=== PATIENT | female | born 1960 | race Caucasian/White ===

== ENCOUNTER 2019-12-21 12:54 | Outpatient (CLI) | payer SELFPAY ==
--- NOTE | 2019-12-21 13:07 | XR_ITS ---
WS: [id number] HIPS BILATERAL TECHNIQUE: 5 views bilateral hips Including pelvis CLINICAL INFORMATION: PAIN IN LEFT HIP COMPARISON: None. FINDINGS: Mild degenerative arthritis both hips with joint space narrowing. Left hip is otherwise normal in thomas earance. No acute fractures. Normal pubic rami. Proximal femurs appear normal. XR/XR hip BI m 5V wo/w pel* [id number] IMPRESSION: No acute left hip fractures.
== END 2019-12-21 12:55 | disposition home or self-care (01) ==
PROVIDERS: Family Provider Family Medicine; PCP Family Medicine; Visit Provider Family Medicine
DX: M25.552 Pain in left hip (principal)
CPT/HCPCS: 73523

== ENCOUNTER 2022-03-19 12:50 | Outpatient (CLI) | payer OTHER, SELFPAY ==
--- NOTE | 2022-03-19 13:18 | MM_ITS ---
WS: [id number] BILATERAL 3D TOMOSYNTHESIS DIGITAL SCREENING MAMMOGRAPHY WITH CAD CLINICAL INFORMATION: SCREENING HISTORY: Screening mammogram. No current complaints. COMPARISON: August 08, 2013 TECHNIQUE: Bilateral CC and MLO views. FINDINGS: Scattered fibroglandular densities bilaterally. A few incidental punctate calcifications. No suspicio us focal mass, asymmetry, calcifications, or architectural distortion. No evidence of malignancy. MM/[place] [id number] IMPRESSION: BI-RADS: 2-Benign FOLLOW UP: 1 Year Follow-up Recommend return to annual screening mammography.
== END 2022-03-19 12:51 | disposition home or self-care (01) ==
LOC: RAD 12:52
PROVIDERS: PCP Family Medicine; Visit Provider Family Medicine
DX: Z12.31 Encounter for screening mammogram for malignant neoplasm of breast (principal)
CPT/HCPCS: 77063; 77067

== ENCOUNTER 2022-11-30 13:20 | Outpatient (CLI) | payer OTHER, SELFPAY ==
--- NOTE | 2022-11-30 13:59 | XR_ITS ---
WS: [id number] Exam: XR lumbar spine min 4V [id number] Date/Time of Exam: 11/30/2022 2:08 PM Reason For Exam: DORSALGIA There is grade 1 degenerative spondylolisthesis of L4 on L5 with about 1.3 cm forward movement of L4. This likely causes some neural impingement. No other spondylolisthesis is noted. Marked degeneration of the L5-S1 disc. Facet arthropathy at all levels. Minimal spondylosis. Mild dextroscoliosis. Bilat eral SI joint DJD. XR/XR lumbar spine min 4V [id number] IMPRESSION: 1. Significant degenerative anterolisthesis of L4 on L5 with about 1.[address] movement of L4. This almost surely causes some degree of neural impingement. 2. Moderately advanced facet arthropathy at all levels. Degeneration of the L5- S1 disc. 3. Mild dextroscoliosis.
== END 2022-11-30 13:21 | disposition home or self-care (01) ==
LOC: RAD 13:41
PROVIDERS: PCP Family Medicine; Visit Provider Family Medicine
DX: M54.9 Dorsalgia, unspecified (principal)
CPT/HCPCS: 72110

== ENCOUNTER 2023-04-01 15:28 | Outpatient (CLI) | payer MEDICARE, SELFPAY ==
--- NOTE | 2023-04-01 | XR_ITS ---
WS: [id number] DEXA (DUAL ENERGY X-RAY ABSORPTIOMETRY) Bone mineral density was performed using a [employer] machine. HISTORY: MENOPAUSAL COMPARISON: None available. Lumbar spine BMD (L1-L4): 1.468 g/cm2 T score: 2.4 Z score: 3.8 Total hip BMD: Left: 0.896 g/cm2. T score: -0.9 Z score: 0.2 Right: 0.831 g/cm2. T score: -1.4 Z score: -0.3 10 year probability of a major osteoporotic fracture is 16.2%. XR/XR DEXA axial skeleton* [id number] IMPRESSION: OSTEOPENIA based upon the WHO classification for females.
== END 2023-04-01 15:29 | disposition home or self-care (01) ==
LOC: RAD 15:36
PROVIDERS: PCP Family Medicine; Visit Provider Neurological Surgery
DX: N95.1 Menopausal and female climacteric states (principal); M85.80 Other specified disorders of bone density and structure, unspecified site; Z79.83 Long term (current) use of bisphosphonates
CPT/HCPCS: 77080

== ENCOUNTER 2023-05-04 13:05 | Emergency (ER) | payer MEDICARE, SELFPAY ==
[2023-05-04 13:18] VITALS: BP 110/62; PULSE 93; RESP 16; TEMP 36.6; O2SAT 99; BMI 25.0
--- NOTE | 2023-05-04 13:34 | USCV_ITS ---
Liz Sin Age: 63 Gender: F : 1960 Exam Date: 05/04/2023 14:33 Ordering Phys: Garcia Perales Technologist: Vinh Wagner Exam Location: [facility] [place]_ Indication: leg pain PROCEDURES: The venous duplex Doppler examination of both lower extremities was performed in the standard fashion. The following venous structures were evaluated: common femoral vein, profunda vein, proximal portion of the greater saphenous vein, superficial femoral vein, and the popliteal vein. FINDINGS: Normal 2-D Doppler and augmentation and compressibility throughout the lower extremity venous structures. Additional imaging through the proximal calf veins also reveals no thrombus. Limited evaluation of the greater saphenous vein is patent with no thrombus. CONCLUSIONS No DVT bilateral lower extremities. Dr. Keely Orr DO (Electronically Signed) Final Date: 04 May 2023 15:53 S
--- NOTE | 2023-05-04 13:36 | ED_ITS ---
HPI - Extremity Problem General: Chief complaint: Extremity Injury, Lower Stated complaint: Juan Manuel sent for possible bloodclot Time Seen by Provider: 05/04/23 13:26 History of Present Illness: Patient is a 63-year-old female who comes to the ED with bilateral leg pain. Patient had lumbar fusion surgery in [place] last week. She noticed some bilateral lower leg swelling for the past couple days. Yesterday she started having pain in her thighs bilaterally and also in her left calf. She talked with her PCP Dr. Zambrano and they told her to come here to the ED to check for a DVT. Associated symptoms: Deny chest pain, fever(s) or rash Review of Systems Const: Denies: fever(s), chills or fatigue Eyes: Denies: change in vision or eye discomfort ENMT: Denies: throat pain, odynophagia, nasal discharge or nasal congestion Card: Denies: chest pain, palpitations, edema, swelling of feet/ankles, dyspnea on exertion or orthopnea Resp: Denies: dyspnea, productive cough or non-productive cough GI: Denies: abdominal pain, nausea, vomiting, diarrhea, constipation or hematochezia : Denies: flank pain, dysuria or hematuria Musc: Reports: extremity pain (Bilateral lower leg pain) and extremity swelling (Bilateral lower leg); Denies: neck pain or back pain Skin/Breast: Denies: rash or new lesions Neuro: Denies: headache(s), numbness in extremities or weakness in extremities PFS ED PFSH: Medical History Diverticulosis Edema GERD (gastroesophageal reflux disease) Hyperlipidemia Hypothyroidism Palpitations Raynaud phenomenon Surgical History S/P cholecystectomy LAPAROSCOPIC 2009 S/P hysterectomy 1988 S/P tubal ligation 1983 Family History Sister Stroke Heart disease Mother Heart disease Diabetes Hypertension Father Heart disease Brother Heart disease Son Cancer COLON Social History Smoking and tobacco status: never smoked Alcohol intake: current Alcohol intake frequency: holidays/special occasions only Substance/Drug Use: never Physical Exam Const: COMMON NORMALS: patient oriented x3 HENMT: COMMON NORMALS: normocephalic HEAD & SCALP: normocephalic MOUTH: Normal oral and palatal mucosa present THROAT: posterior oropharynx normal and uvula midline Neck/C-Spine: COMMON NORMALS: supple GENERAL: Yes normal visual inspection Resp: COMMON NORMALS: normal respiratory effort, No retractions, No use of accessory muscles and clear to auscultation bilaterally AUSCULTATION: clear to auscultation bilaterally Cardio: COMMON NORMALS: regular rate, regular rhythm, S1 normal heart sound present, S2 normal heart sound present, No gallops present (Cardio), No clicks present (Cardio), No murmurs present (Cardio) and Peripheral pulses 2+ throughout RATE: regular rate RHYTHM: regular rhythm HEART SOUNDS: S1 normal heart sound present and S2 normal heart sound present PERIPHERAL PULSES: Peripheral pulses 2+ throughout GI: COMMON NORMALS: Normal to inspection, nondistended, normoactive bowel sounds present, Soft to palpation, non-tender and no masses PALPATION: Yes Soft to palpation : COMMON NORMALS: Yes no CVA tenderness BLADDER/KIDNEY EXAM: Yes no CVA tenderness Back/Pelvis: COMMON NORMALS: no CVA tenderness Extremity: GENERAL: Yes normal exam except as noted, Yes calf tenderness (Left calf tenderness, no right calf tenderness) and No edema Neuro: COMMON NORMALS: patient oriented x3 GAIT: Yes Normal gait present Skin: GENERAL SKIN EXAM: dry skin Course Vital Signs: Vital signs: Vital Signs Temperature 97.8 F 05/04/23 13:18 Pulse Rate 83 05/04/23 14:12 Respiratory Rate 16 05/04/23 14:12 Blood Pressure 114/68 05/04/23 14:12 Pulse Oximetry 98 05/04/23 14:12 Oxygen Delivery Me thod Room Air 05/04/23 15:05 MDM - Extremity (Nontraumatic) Medical Decision Making Patient is a 63-year-old female who comes to the ED with bilateral leg pain. Patient had lumbar fusion surgery in [place] last week. She noticed some bilateral lower leg swelling for the past couple days. Yesterday she started having pain in her thighs bilaterally and also in her left calf. She talked with her PCP Dr. Zambrano and they told her to come here to the ED to check for a DVT. Vitals are stable. Patient does have some left calf tenderness but no right calf tenderness. No palpable edema noted. Ultrasound venous duplex of lower extremities bilaterally showed no DVTs or blood clots seen. Patient was stable for discharge home and diagnosed with bilateral leg pain. Told to follow-up with PCP in the next week for reevaluation. Return to ED precautions given. Patient understood and agreed with plan. Discharge Plan Discharge Patient Disposition: Home Clinical Impression: Bilateral leg pain Condition: Stable Prescriptions: No Action metoprolol succinate 25 mg tablet extended release 24 hr 25 mg PO DAILY venlafaxine 37.5 mg capsule,extended release 24hr 37.5 mg PO QAM aspirin [Aspir-81] 81 mg tablet,delayed release (DR/EC) 81 mg PO DAILY levothyroxine 25 mcg capsule 25 mcg PO DAILY nitroglycerin 0.4 mg tablet, sublingual 0.4 mg SUBLINGUAL Q5M PRN pantoprazole 40 mg tablet,delayed release (DR/EC) 40 mg PO DAILY Discharge Orders: Discharge ED (Routine); Ordered 05/04/23 Ordered By: Garcia Perales Referrals: Mona Zambrano MD [Primary Care Provider] - Discharge Diet: Regular Discharge Activity: Increase activity as tolerated Activity Restrictions/Additional Instructions: Follow-up with medical provider as directed in the next 5 to 7 days for reevaluation. Continue taking all home medications as previously prescribed. Return to the ER or your medical provider if condition worsens. Please read and understand discharge instructions. Thank you for choosing [facility] for your healthcare needs today. Please realize this is an emergency room and that we are providing you with a medical screening exam and this may not be complete and all inclusive of all the testing and or work up that you may need to determine your ailment or severity of your illness. It is very important that you follow up as instructed or that you return to the Emergency Department should you have concerns or if your condition changes or worsens in any way. 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
[2023-05-04 14:12] VITALS: BP 114/68; PULSE 83; RESP 16; O2SAT 98
== END 2023-05-04 15:09 | disposition home or self-care (01) ==
PROVIDERS: Emergency Provider Physician Assistant; PCP Family Medicine
DX: M79.605 Pain in left leg (principal); M79.604 Pain in right leg; Z79.82 Long term (current) use of aspirin; E78.5 Hyperlipidemia, unspecified
CPT/HCPCS: 93970; 99284

== ENCOUNTER 2023-05-30 14:56 | Emergency (ER) | payer MEDICARE, SELFPAY ==
--- NOTE | 2023-05-30 15:02 | ED_ITS ---
Documented by User: Antonio Castillo MD 06/12/23 23:17 HPI - Weakness General: Chief complaint: Syncope Stated complaint: near syncope Time Seen by Provider: 05/30/23 15:01 History of Present Illness: Ms. Sin is a 63-year-old lady presented the emergency department for near syncope. She reports being at her baseline health and was sitting outside. She had sudden short lasting subsequently resolved abdominal pain and went to stand up and when she stood up she felt lightheaded and her vision changed. There is no collapse or actual loss of consciousness. She subsequently feels back to normal. Intensity of symptoms when present was severe. She does have a history of lumbar fusion surgery in [place] in April. Denies fevers, changes in appetite or oral intake, or any other significant changes in health. She has had bilateral ankle pain for some time. No calf pain or swelling. No other specific changes in health, exacerbating, or alleviating factors identified. Onset (ago): hour(s) Context: other Review of Systems General: Reports: 10 or more systems reviewed and unremarkable except in HPI and below PFSH ED PFSH: Medical History Diverticulosis Edema GERD (gastroesophageal reflux disease) Hyperlipidemia Hypothyroidism Palpitations Raynaud phenomenon Surgical History S/P cholecystectomy LAPAROSCOPIC 2009 S/P hysterectomy 1988 S/P tubal ligation 1983 Family History Sister Stroke Heart disease Mother Heart disease Diabetes Hypertension Father Heart disease Brother Heart disease Son Cancer COLON Social History Smoking and tobacco status: never smoked Alcohol intake: current Alcohol intake frequency: holidays/special occasions only Substance/Drug Use: never Physical Exam Const: COMMON NORMALS: patient oriented x3 and alert GENERAL APPEARANCE: cooperative and well developed HENMT: COMMON NORMALS: normocephalic and atraumatic HEAD & SCALP: normocephalic and atraumatic Eye: COMMON NORMALS: conjunctivae normal CONJUNCTIVA: Yes conjunctivae normal SCLERA: sclerae normal Neck/C-Spine: COMMON NORMALS: supple GENERAL: Yes trachea midline Resp: COMMON NORMALS: normal respiratory effort and clear to auscultation bilaterally EFFORT & INSPECTION: Yes able to speak in complete sentences AUSCULTATION: clear to auscultation bilaterally Cardio: COMMON NORMALS: regular rate and regular rhythm RATE: regular rate RHYTHM: regular rhythm GI: COMMON NORMALS: Soft to palpation PALPATION: Yes Soft to palpation and No Tenderness to palpation present (GI) Extremity: GENERAL: Yes normal exam except as noted and No edema Neuro: COMMON NORMALS: patient oriented x3, CN's II-XII intact bilaterally, moves all extremities, no focal motor deficits and no sensory deficits noted SENSORIUM/ORIENTATION: Yes alert and No Orientation impaired Psych: COMMON NORMALS: mental status grossly normal and Normal thought process present THOUGHT PROCESS: Normal thought process present Course Vital Signs: Vital signs: Vital Signs Temperature 98.2 F 05/30/23 15:03 Pulse Rate 99 05/30/23 19:32 Respiratory Rate 16 05/30/23 18:00 Blood Pressure 146/76 05/30/23 19:32 Pulse Oximetry 98 05/30/23 18:00 Oxygen Delivery Me thod Room Air 05/30/23 15:03 MDM - Weakness Medical Decision Making 63-year-old lady presenting with syncopal type episode and initial hypotension. Exam as above. No focal neurologic deficits appreciated. Patient is nontoxic and there is no meningismus EKG demonstrates sinus rhythm with left axis deviation and incomplete right bundle branch block, no STEMI. Initial laboratory studies notable for no significant hematologic or metabolic abnormality to explain symptoms. Mild transaminitis noted, no specific right upper quadrant tenderness. Handed off to Dr. Andrade pending completion of ED evaluation. Patient presents with a near syncopal event after standing up too fast she is well-appearing here blood works been normal her vitals here been normal she is stable for discharge she is to follow-up with her PCP and return if worsening she understands agrees to plan. Lab Data 05/30/23 15:35 05/30/23 15:35 Laboratory Results WBC 6.6 10^3/uL (4.0-10.0) 05/30/23 15:35 RBC 3.97 10^6/uL (4.1-5.3) L 05/30/23 15:35 Hgb 11.8 g/dL (11.5-15.3) 05/30/23 15:35 Hct 36.7 % (37.0-47.0) L 05/30/23 15:35 MCV 92.4 fl (81-99) 05/30/23 15:35 MCH 29.7 pg (28.0-34.0) 05/30/23 15:35 MCHC 32.2 g/dL (30.0-36.0) 05/30/23 15:35 RDW 12.7 % (12.1-15.1) 05/30/23 15:35 Plt Count 294 10^3/cmm (130-400) 05/30/23 15:35 MPV 10.1 fL (7.4-10.4) 05/30/23 15:35 Neut % (Auto) 52.9 % 05/30/23 15:35 Lymph % (Auto) 34.9 % 05/30/23 15:35 [place] % (Auto) 8.4 % 05/30/23 15:35 Eos % (Auto) 2.4 % 05/30/23 15:35 Baso % (Auto) 1.1 % 05/30/23 15:35 Neut # (Auto) 3.48 10^3/uL (1.8-7.7) 05/30/23 15:35 Lymph # (Auto) 2.3 10^3/uL (0.8-4.8) 05/30/23 15:35 [place] # (Auto) 0.6 10^3/uL (0.2-0.9) 05/30/23 15:35 Eos # (Auto) 0.2 10^3/uL (0.0-0.8) 05/30/23 15:35 Baso # (Auto) 0.1 10^3/uL (0.0-0.1) 05/30/23 15:35 Nucleated RBC % (auto) 0 % 05/30/23 15:35 Nucleated RBCs # 0.0 /100WBC 05/30/23 15:35 Sodium 138 mmol/L (136-145) 05/30/23 15:35 Potassium 4.0 mmol/L (3.5-5.1) 05/30/23 15:35 Chloride 100 mmol/L (98-107) 05/30/23 15:35 Carbon Dioxide 23 mmol/L (22-29) 05/30/23 15:35 Anion Gap 19.0 (5-19) 05/30/23 15:35 BUN 19 mg/dL (8-23) 05/30/23 15:35 Creatinine 0.7 mg/dL (0.5-0.9) 05/30/23 15:35 GFR Calculation 84.0 mL/min (90-130) L 05/30/23 15:35 Glucose 140 mg/dL (65-115) H 05/30/23 15:35 Calculated Osmolality 291 mOsm/kg (285-295) 05/30/23 15:35 Calcium 9.7 mg/dL (8.5-10.5) 05/30/23 15:35 Total Bilirubin 0.4 mg/dL (0.15-1.2) 05/30/23 15:35 AST 60 U/L (0-32) H 05/30/23 15:35 ALT 40 U/L (0-33) H 05/30/23 15:35 Alkaline Phosphatase 115 U/L (35-105) H 05/30/23 15:35 Troponin T Baseline 10 ng/L (0-10) 05/30/23 15:35 Troponin T 120 Minute 9.40 ng/L (0-10) 05/30/23 17:54 Delta Troponin T -0.6 ABS# (0-10) L 05/30/23 17:54 NT-Pro-B Natriuret Pep 156 pg/mL (0-125) H 05/30/23 15:35 Total Protein 6.8 g/dL (6.6-8.7) 05/30/23 15:35 Albumin 4.2 g/dL (3.5-5.2) 05/30/23 15:35 Globulin 2.6 g/dL (1.3-4.6) 05/30/23 15:35 Lipase 30 U/L (13-60) 05/30/23 15:35 Procalcitonin 0.06 ng/mL (0-0.5) 05/30/23 15:35 TSH 5.26 uIU/mL (0.27-4.20) H 05/30/23 15:35 Free T4 1.14 ng/dL (0.82-1.77) 05/30/23 15:35 Urine Color Yellow (Yellow) 05/30/23 17:15 Urine Appearance Clear (CLEAR) 05/30/23 17:15 Urine pH 7 (5-7) 05/30/23 17:15 Ur Specific [place] 1.010 (1.005-1.030) 05/30/23 17:15 Urine Protein Neg (Negative) 05/30/23 17:15 Urine Glucose (UA) Norm (Normal) 05/30/23 17:15 Urine Ketones Negative (Negative) 05/30/23 17:15 Urine Blood Neg (Negative) 05/30/23 17:15 Urine Nitrate Negative (Negative) 05/30/23 17:15 Urine Bilirubin Neg (Negative) 05/30/23 17:15 Urine Urobilinogen Norm mg/dL (Negative) 05/30/23 17:15 Ur Leukocyte Esterase Negative (Negative) 05/30/23 17:15 Discharge Plan Discharge Patient Disposition: Home Clinical Impression: Pre-syncope, Transaminitis Condition: Stable Prescriptions: No Action metoprolol succinate 25 mg tablet extended release 24 hr 25 mg PO DAILY venlafaxine 37.5 mg capsule,extended release 24hr 37.5 mg PO QAM levothyroxine 25 mcg capsule 25 mcg PO DAILY nitroglycerin 0.4 mg tablet, sublingual 0.4 mg SUBLINGUAL Q5M PRN (Reason: Chest Pain) pantoprazole 40 mg tablet,delayed release (DR/EC) 40 mg PO DAILY vitamin G90-hhmop acid 1,000-400 mcg Lozenge 1 boris SUBLINGUAL DAILY atorvastatin 20 mg tablet 20 mg PO QPM Discharge Orders: Discharge ED (Routine); Ordered 05/30/23 Ordered By: Raúl Andrade Referrals: Mona Zambrano MD [Primary Care Provider] - Discharge Diet: Usual diet Discharge Activity: Resume usual activity Patient Instructions: Near Syncope (ED) Activity Restrictions/Additional Instructions: Thank you for visiting the emergency department. You were seen and evaluated for near syncope. The exact cause of your symptoms is unclear however based on ED evaluation does not appear to need hospitalization at this time. You were noted to have mild elevation in your liver enzymes, the cause of this is unclear and should be followed with repeat labs within the next week with your primary care provider. Follow-up with your primary care provider. Return for worsening symptoms, abdominal pain, fevers, nausea, vomiting, syncope, chest pain, shortness of breath, or anything else that you are co ncerned about and feel needs emergency department evaluation Coding Level of Care Code ED Voice Pathologist for Chg Fwd Documented by User: Raúl Andrade MD 05/30/23 18:50 HPI - Weakness General: Chief complaint: Syncope Stated complaint: near syncope Time Seen by Provider: 05/30/23 15:01 [facility] ED PFSH: Medical History Diverticulosis Edema GERD (gastroesophageal reflux disease) Hyperlipidemia Hypothyroidism Palpitations Raynaud phenomenon Surgical History S/P cholecystectomy LAPAROSCOPIC 2009 S/P hysterectomy 1988 S/P tubal ligation 1983 Family History Sister Stroke Heart disease Mother Heart disease Diabetes Hypertension Father Heart disease Brother Heart disease Son Cancer COLON Social History Smoking and tobacco status: never smoked Alcohol intake: current Alcohol intake frequency: holidays/special occasions only Substance/Drug Use: never Course Vital Signs: Vital signs: Vital Signs Temperature 98.2 F 05/30/23 15:03 Pulse Rate 99 05/30/23 19:32 Respiratory Rate 16 05/30/23 18:00 Blood Pressure 146/76 05/30/23 19:32 Pulse Oximetry 98 05/30/23 18:00 Oxygen Delivery Me thod Room Air 05/30/23 15:03 MDM - Weakness Medical Decision Making Patient presents with a near syncopal event after standing up too fast she is well-appearing here blood works been normal her vitals here been normal she is stable for discharge she is to follow-up with her PCP and return if worsening she understands agrees to plan. Medical Records I reviewed the patient's medical records. Lab Data I reviewed the patient's lab results. 05/30/23 15:35 05/30/23 15:35 Laboratory Results WBC 6.6 10^3/uL (4.0-10.0) 05/30/23 15:35 RBC 3.97 10^6/uL (4.1-5.3) L 05/30/23 15:35 Hgb 11.8 g/dL (11.5-15.3) 05/30/23 15:35 Hct 36.7 % (37.0-47.0) L 05/30/23 15:35 MCV 92.4 fl (81-99) 05/30/23 15:35 MCH 29.7 pg (28.0-34.0) 05/30/23 15:35 MCHC 32.2 g/dL (30.0-36.0) 05/30/23 15:35 RDW 12.7 % (12.1-15.1) 05/30/23 15:35 Plt Count 294 10^3/cmm (130-400) 05/30/23 15:35 MPV 10.1 fL (7.4-10.4) 05/30/23 15:35 Neut % (Auto) 52.9 % 05/30/23 15:35 Lymph % (Auto) 34.9 % 05/30/23 15:35 [place] % (Auto) 8.4 % 05/30/23 15:35 Eos % (Auto) 2.4 % 05/30/23 15:35 Baso % (Auto) 1.1 % 05/30/23 15:35 Neut # (Auto) 3.48 10^3/uL (1.8-7.7) 05/30/23 15:35 Lymph # (Auto) 2.3 10^3/uL (0.8-4.8) 05/30/23 15:35 [place] # (Auto) 0.6 10^3/uL (0.2-0.9) 05/30/23 15:35 Eos # (Auto) 0.2 10^3/uL (0.0-0.8) 05/30/23 15:35 Baso # (Auto) 0.1 10^3/uL (0.0-0.1) 05/30/23 15:35 Nucleated RBC % (auto) 0 % 05/30/23 15:35 Nucleated RBCs # 0.0 /100WBC 05/30/23 15:35 Sodium 138 mmol/L (136-145) 05/30/23 15:35 Potassium 4.0 mmol/L (3.5-5.1) 05/30/23 15:35 Chloride 100 mmol/L (98-107) 05/30/23 15:35 Carbon Dioxide 23 mmol/L (22-29) 05/30/23 15:35 Anion Gap 19.0 (5-19) 05/30/23 15:35 BUN 19 mg/dL (8-23) 05/30/23 15:35 Creatinine 0.7 mg/dL (0.5-0.9) 05/30/23 15:35 GFR Calculation 84.0 mL/min (90-130) L 05/30/23 15:35 Glucose 140 mg/dL (65-115) H 05/30/23 15:35 Calculated Osmolality 291 mOsm/kg (285-295) 05/30/23 15:35 Calcium 9.7 mg/dL (8.5-10.5) 05/30/23 15:35 Total Bilirubin 0.4 mg/dL (0.15-1.2) 05/30/23 15:35 AST 60 U/L (0-32) H 05/30/23 15:35 ALT 40 U/L (0-33) H 05/30/23 15:35 Alkaline Phosphatase 115 U/L (35-105) H 05/30/23 15:35 Troponin T Baseline 10 ng/L (0-10) 05/30/23 15:35 Troponin T 120 Minute 9.40 ng/L (0-10) 05/30/23 17:54 Delta Troponin T -0.6 ABS# (0-10) L 05/30/23 17:54 NT-Pro-B Natriuret Pep 156 pg/mL (0-125) H 05/30/23 15:35 Total Protein 6.8 g/dL (6.6-8.7) 05/30/23 15:35 Albumin 4.2 g/dL (3.5-5.2) 05/30/23 15:35 Globulin 2.6 g/dL (1.3-4.6) 05/30/23 15:35 Lipase 30 U/L (13-60) 05/30/23 15:35 Procalcitonin 0.06 ng/mL (0-0.5) 05/30/23 15:35 TSH 5.26 uIU/mL (0.27-4.20) H 05/30/23 15:35 Free T4 1.14 ng/dL (0.82-1.77) 05/30/23 15:35 Urine Color Yellow (Yellow) 05/30/23 17:15 Urine Appearance Clear (CLEAR) 05/30/23 17:15 Urine pH 7 (5-7) 05/30/23 17:15 Ur Specific [place] 1.010 (1.005-1.030) 05/30/23 17:15 Urine Protein Neg (Negative) 05/30/23 17:15 Urine Glucose (UA) Norm (Normal) 05/30/23 17:15 Urine Ketones Negative (Negative) 05/30/23 17:15 Urine Blood Neg (Negative) 05/30/23 17:15 Urine Nitrate Negative (Negative) 05/30/23 17:15 Urine Bilirubin Neg (Negative) 05/30/23 17:15 Urine Urobilinogen Norm mg/dL (Negative) 05/30/23 17:15 Ur Leukocyte Esterase Negative (Negative) 05/30/23 17:15 Discharge Plan Discharge Patient Disposition: Home Clinical Impression: Pre-syncope, Transaminitis Condition: Stable Prescriptions: No Action metoprolol succinate 25 mg tablet extended release 24 hr 25 mg PO DAILY venlafaxine 37.5 mg capsule,extended release 24hr 37.5 mg PO QAM levothyroxine 25 mcg capsule 25 mcg PO DAILY nitroglycerin 0.4 mg tablet, sublingual 0.4 mg SUBLINGUAL Q5M PRN (Reason: Chest Pain) pantoprazole 40 mg tablet,delayed release (DR/EC) 40 mg PO DAILY vitamin F26-papqv acid 1,000-400 mcg Lozenge 1 boris SUBLINGUAL DAILY atorvastatin 20 mg tablet 20 mg PO QPM Discharge Orders: Discharge ED (Routine); Ordered 05/30/23 Ordered By: Raúl Andrade Referrals: Mona Zambrano MD [Primary Care Provider] - Discharge Diet: Usual diet Discharge Activity: Resume usual activity Patient Instructions: Near Syncope (ED) Activity Restrictions/Additional Instructions: Thank you for visiting the emergency department. You were seen and evaluated for near syncope. The exact cause of your symptoms is unclear however based on ED evaluation does not appear to need hospitalization at this time. You were noted to have mild elevation in your liver enzymes, the cause of this is unclear and should be followed with repeat labs within the next week with your primary care provider. Follow-up with your primary care provider. Return for worsening symptoms, abdominal pain, fevers, nausea, vomiting, syncope, chest pain, shortness of breath, or anything else that you are concerned about and feel needs emergency department evaluation Coding Level of Care Code ED Voice Pathologist for Victoria Jeknins
[2023-05-30 15:03] VITALS: BP 121/67; PULSE 72; RESP 16; TEMP 36.8; O2SAT 96
--- NOTE | 2023-05-30 15:23 | ECG_ITS ---
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 Measurements Intervals [place] Rate: 64 P: 46 GA: 164 QRS: -52 QRSD: 114 T: 47 QT: 414 QTc: 428 Interpretive Statements SINUS RHYTHM INCOMPLETE RIGHT BUNDLE BRANCH BLOCK [90+ ms QRS DURATION, TERMINAL R IN V1/V2, 40+ ms S IN I/aVL/V4/V5/V6] LEFT ANTERIOR FASCICULAR BLOCK [QRS AXIS <= -45, QR IN I, RS IN II] Compared to ECG 04/14/2019 22:52:41 Left anterior fascicular block now present Sinus bradycardia no longer present Electronically Signed On 05-31-2023 21:19:02 CDT by Marion Mishra M.D. [id number]
[2023-05-30 16:18] LABS: Basophils # 0.1 10^3/uL (0.0-0.1); Basophils % 1.1 %; Eosinophils # 0.2 10^3/uL (0.0-0.8); Eosinophils % 2.4 %; Hematocrit 36.7 % (37.0-47.0); Hemoglobin 11.8 g/dL (11.5-15.3); Lymphocytes # 2.3 10^3/uL (0.8-4.8); Lymphocytes % 34.9 %; Mean Corpuscular HGB Conc 32.2 g/dL (30.0-36.0); Mean Corpuscular Hemoglobin 29.7 pg (28.0-34.0); Mean Corpuscular Volume 92.4 fl (81-99); Mean Platelet Volume 10.1 fL (7.4-10.4); Monocytes # 0.6 10^3/uL (0.2-0.9); Monocytes % 8.4 %; Neutrophils # 3.48 10^3/uL (1.8-7.7); Neutrophils % 52.9 %; Nucleated Red Blood Cells % 0 %; Platelet Count 294 10^3/cmm (130-400); Red Blood Count 3.97 10^6/uL (4.1-5.3); Red Cell Distribution Width 12.7 % (12.1-15.1); White Blood Count 6.6 10^3/uL (4.0-10.0)
[2023-05-30 16:30] VITALS: BP 121/67; RESP 16
[2023-05-30 16:37] LABS: Troponin(5th) Baseline 10 ng/L (0-10)
[2023-05-30 16:45] LABS: NT Pro B Type Natriuretic Pept 156 pg/mL (0-125); Procalcitonin 0.06 ng/mL (0-0.5); Thyroid Stimulating Hormone 5.26 uIU/mL (0.27-4.20)
[2023-05-30 16:56] LABS: Alanine Aminotransferase 40 U/L (0-33); Albumin Level 4.2 g/dL (3.5-5.2); Alkaline Phosphatase 115 U/L (35-105); Aspartate Amino Transferase 60 U/L (0-32); Blood Urea Nitrogen 19 mg/dL (8-23); Calcium 9.7 mg/dL (8.5-10.5); Carbon Dioxide 23 mmol/L (22-29); Chloride 100 mmol/L (98-107); Globulin 2.6 g/dL (1.3-4.6); Glucose 140 mg/dL (65-115); Osmolality Calculated 291 mOsm/kg (285-295); Sodium 138 mmol/L (136-145); Total Bilirubin 0.4 mg/dL (0.15-1.2); Total Protein 6.8 g/dL (6.6-8.7)
[2023-05-30 17:00] VITALS: PULSE 80; RESP 16; O2SAT 98
--- NOTE | 2023-05-30 17:23 | ECG_ITS ---
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 Measurements Intervals [place] Rate: 63 P: 66 MI: 177 QRS: -52 QRSD: 109 T: 60 QT: 423 QTc: 433 Interpretive Statements SINUS RHYTHM INCOMPLETE RIGHT BUNDLE BRANCH BLOCK [90+ ms QRS DURATION, TERMINAL R IN V1/V2, 40+ ms S IN I/aVL/V4/V5/V6] LEFT ANTERIOR FASCICULAR BLOCK [QRS AXIS <= -45, QR IN I, RS IN II] Compared to ECG 05/30/2023 15:31:49 No significant changes Electronically Signed On 05-31-2023 21:36:09 CDT by Marion Mishra M.D. [id number]
[2023-05-30] MEDS: sodium chloride 0.9% 1,000 ML 999 ML IV (17:27)
[2023-05-30 17:32] LABS: Lipase 30 U/L (13-60)
[2023-05-30 17:40] LABS: Free T4 Free Thyroxine 1.14 ng/dL (0.82-1.77)
[2023-05-30 18:00] VITALS: RESP 16; O2SAT 98
[2023-05-30 18:07] LABS: Add Urine Microscopic? NO; Charge for UA Resulting for Rev
[2023-05-30 18:16] LABS: Blood Urine Neg (Negative); Glucose Urine UA Norm (Normal); Ketones Urine Negative (Negative); Protein Urine Neg (Negative); Urine Appearance Clear (CLEAR); Urine Color Yellow (Yellow); pH Urine 7 (5-7)
[2023-05-30 18:17] LABS: Bilirubin Urine Neg (Negative); Leukocyte Esterase Urine Negative (Negative); Nitrate Urine Negative (Negative); Urobilinogen Urine Norm (Negative)
[2023-05-30 19:21] LABS: Troponin 5 2HR Delta -0.6 ABS# (0-10)
[2023-05-30 19:32] VITALS: BP 132/73; BP 141/75; BP 146/76; PULSE 92; PULSE 97; PULSE 99
== END 2023-05-30 19:42 | disposition home or self-care (01) ==
PROVIDERS: Emergency Medicine; Emergency Provider Emergency Medicine; PCP Family Medicine
DX: R55 Syncope and collapse (principal); R74.01 Elevation of levels of liver transaminase levels; E78.5 Hyperlipidemia, unspecified
CPT/HCPCS: 36415; 80053; 81003; 83690; 83880; 84145; 84439; 84443; 84484; 85025; 93005; 99284; J7030

== ENCOUNTER 2023-06-28 11:52 | Outpatient (RCR) | payer MEDICARE, SELFPAY | END 2023-07-08 23:59 | disposition home or self-care (01) | LOC: SPT 11:52 | PROVIDERS: PCP Family Medicine; Visit Provider Physician Assistant | DX: Z98.1 Arthrodesis status (principal) | CPT/HCPCS: 97161 ==

== ENCOUNTER 2023-07-09 06:00 | Outpatient (RCR) | payer MEDICARE, SELFPAY | END 2023-08-07 23:59 | disposition home or self-care (01) | LOC: SPT 06:00 | PROVIDERS: PCP Family Medicine; Visit Provider Physician Assistant | DX: Z98.1 Arthrodesis status (principal) | CPT/HCPCS: 97110; 97530 ==

== ENCOUNTER → 2023-11-26 09:57 | Outpatient (BNVA) | payer MEDICARE, SELFPAY | PROVIDERS: PCP Family Medicine; Visit Provider Nurse Practitioner Family | DX: D48.5 Neoplasm of uncertain behavior of skin (principal); Z85.828 Personal history of other malignant neoplasm of skin; L71.0 Perioral dermatitis; L57.0 Actinic keratosis; L57.8 Other skin changes due to chronic exposure to nonionizing radiation; D22.4 Melanocytic nevi of scalp and neck; L81.4 Other melanin hyperpigmentation | CPT/HCPCS: 11102; 17000; 99204 ==

== ENCOUNTER → 2024-02-07 08:03 | Outpatient (BNVA) | payer MEDICARE, SELFPAY | PROVIDERS: PCP Family Medicine; Visit Provider Dermatology | DX: C44.311 Basal cell carcinoma of skin of nose (principal) | CPT/HCPCS: 13152; 17311 ==

== ENCOUNTER 2024-03-14 12:16 | Outpatient (CLI) | payer MEDICARE, SELFPAY ==
--- NOTE | 2024-03-14 12:19 | MR_ITS ---
WS: [id number] MRI RIGHT KNEE NONCONTRAST TECHNIQUE: Axial PD, coronal PD fat sat, coronal PD, sagittal PD, and sagittal PD fat-sat images obta ined. CLINICAL INFORMATION: PAIN OF R KNEE JOINT COMPARISON: None. FINDINGS: Distal quadriceps and patellar tendons are intact. Small suprapatellar effusion. Moderate chondromala juana patella. This is worse involving the medial patellar facet. Medial and lateral patellar retinacul um appear intact. Normal ACL and PCL. Chronic thinning of the medial and lateral meniscus. Horizontal tear involving th e lateral meniscus extending to the peripheral articular surface. Peripheral extrusion of the lateral meniscus. Normal popliteus and lateral collateral ligament. Normal medial collateral ligament. Fibul ar head is normal. Grade 2-3 chondromalacia involving the medial and lateral joint compartments. Gonsalo a in the prepatellar soft tissues and popliteal fossa. Small lobulated popliteal cyst measuring 0.9 x 2.3 cm AP by craniocaudal MR/MR knee RT wo con* [id number] IMPRESSION: 1. Normal ACL and PCL. 2. Small suprapatellar effusion. 3. Horizontal tear involving the lateral meniscus extending to the peripheral articular surface. Peripheral extrusion of the lateral meniscus. 4. Small lobulated popliteal cyst. Outbridge grading: grade III: partial-thickness cartilage loss with focal ulcer ation
== END 2024-03-14 12:17 | disposition home or self-care (01) ==
LOC: RAD 12:16
PROVIDERS: PCP Family Medicine; Visit Provider Nurse Practitioner Family
DX: M25.561 Pain in right knee (principal); S83.281A Other tear of lateral meniscus, current injury, right knee, initial encounter; X58.XXXA Exposure to other specified factors, initial encounter; M25.461 Effusion, right knee; M71.21 Synovial cyst of popliteal space [Baker], right knee
CPT/HCPCS: 73721

== ENCOUNTER 2024-05-14 18:13 | Emergency (ER) | payer MEDICARE, SELFPAY ==
[2024-05-14 18:34] VITALS: BP 163/87; PULSE 85; RESP 18; TEMP 36.6; O2SAT 95; BMI 25.7
--- NOTE | 2024-05-14 18:36 | XRR_ITS ---
PROCEDURE INFORMATION: Exam: XR Right Knee Exam date and time: 05/14/2024 6:41 PM Age: 64 years old Clinical indication: Injury or trauma; Sprain or strain; Patella or knee; Right; Patient HX: Patient strained her knee walking on uneven gravel two days ago and C/O persistent knee pain. History of meniscus tear. ; Additional info: R knee inj TECHNIQUE: Imaging protocol: Radiologic exam of the right knee. Views: 3 views. Other technique: AP, LATERAL, AND OBLIQUE COMPARISON: 1. MR knee RT wo con* [id number] 03/14/2024 12:31 PM 2. CR XR knee RT 3V* [id number] 02/28/2024 11:07 AM FINDINGS: Bones/joints: Normal alignment. No acute fractures or dislocations. Bones appear diffusely osteopenic. No bone lesions. Joint is normal. Soft tissues: Grossly unremarkable. XR/XR knee RT 3V* [id number] IMPRESSION: No acute fractures or dislocations.
[2024-05-14 19:00] VITALS: BP 138/77; PULSE 71; RESP 16; O2SAT 97
[2024-05-14] MEDS: dexamethasone 4 mg Tablet 10 MG PO (19:49)
[2024-05-14 19:50] VITALS: RESP 16
[2024-05-14] MEDS: oxyCODONE-APAP 5-325 mg Tablet 2 TAB PO (19:50)
--- NOTE | 2024-05-14 19:51 | ED_ITS ---
HPI - Extremity Problem General: Chief complaint: Extremity Injury, Lower Stated complaint: right knee injury Time Seen by Provider: 05/14/24 18:36 History of Present Illness: 64-year-old female with right knee pain. She notes that she slipped and fell earlier today, landing with the knee outward and bent. She complains of lateral sided pain with swelling. She was having pain prior to this knee injury, had an MRI a couple of weeks ago and told she may have a meniscus tear. She was also told by a surgeon in [place] she did not really have a meniscus tear and did not need surgery. No fever. No rashes. No history of injections or surgery. PFSH ED PFSH: Medical History Diverticulosis Edema GERD (gastroesophageal reflux disease) Hyperlipidemia Hypothyroidism Palpitations Raynaud phenomenon Surgical History S/P cholecystectomy LAPAROSCOPIC 2009 S/P hysterectomy 1988 S/P tubal ligation 1983 Family History Sister Stroke Heart disease Mother Heart disease Diabetes Hypertension Father Heart disease Brother Heart disease Son Cancer COLON Social History Smoking and tobacco/nicotine status: never used tobacco/nicotine Alcohol intake: current Alcohol intake frequency: holidays/special occasions only Substance/Drug Use: never Physical Exam Const: COMMON NORMALS: no acute distress GENERAL APPEARANCE: cooperative; not ill appearing and not frail appearing HENMT: COMMON NORMALS: normocephalic, atraumatic and Normal external nose present HEAD & SCALP: normocephalic and atraumatic FACE & SINUS: normal facial exam and face symmetric NOSE: Normal external nose present Eye: COMMON NORMALS: Equal, round and reactive pupils present and EOMs intact bilaterally PUPIL: Yes Equal, round and reactive pupils present Neck/C-Spine: GENERAL: Yes trachea midline Chest: CHEST: Yes Symmetrical chest wall rise Resp: COMMON NORMALS: normal respiratory effort, No retractions and No use of accessory muscles Cardio: COMMON NORMALS: regular rate and regular rhythm RATE: regular rate RHYTHM: regular rhythm GI: COMMON NORMALS: Normal to inspection, nondistended, normoactive bowel sounds present Back/Pelvis: OTHER: Examination right knee reveals a small knee joint effusion. There is lateral joint line tenderness. There is no deformity. Ligaments are essentially stable on exam. Extremity: COMMON NORMALS: no pedal edema Neuro: JESUS COMA SCALE: document GCS findings [place] coma scale eye opening: Spontaneous Jesus coma scale verbal response: Orientated [place] coma scale motor response: Obey commands Jesus coma scale total score: 15 SENSORY EXAM: Yes extremities (intact) Psych: COMMON NORMALS: speech normal SPEECH: Yes normal speech Skin: COMMON NORMALS: no rashes or lesions noted GENERAL SKIN EXAM: no rashes or lesions noted Course Vital Signs: Vital signs: Vital Signs Temperature 97.9 F 05/14/24 18:34 Pulse Rate 85 05/14/24 18:34 Respiratory Rate 16 05/14/24 19:50 Blood Pressure 163/87 05/14/24 18:34 Pulse Oximetry 95 05/14/24 18:34 Oxygen Delivery Me thod Room Air 05/14/24 18:34 MDM - Extremity (Nontraumatic) Medical Decision Making This lady has a small knee effusion. I reviewed her MRI. She may have a small lateral meniscus tear, but I agree she may not need surgery. Suggested she follow-up with orthopedics or PCP for potential cortisone injection. For now, she will be placed in a hinged sports knee brace, given crutches for weightbearing if she needs it, but encouraged to bear weight as soon as possible. She will be placed on a tapering dose of steroid for pain and swelling. Physical therapy may be beneficial as well, she was counseled on this. Lab Data Radiology Impressions Knee X-Ray 05/14/24 18:36 IMPRESSION: No acute fractures or dislocations. All radiology interpretation(s) finalized by discharge Discharge Plan Discharge Patient Disposition: Home Clinical Impression: Effusion of knee joint right Condition: Stable Prescriptions: New Medrol (Mookie) 4 mg tablets,dose pack See Rx Instructions .ROUTE .COMPLEX Qty: 21 0RF Rx Instructions: orally per package directions No Action metoprolol succinate 25 mg tablet extended release 24 hr 25 mg PO DAILY venlafaxine 37.5 mg capsule,extended release 24hr 37.5 mg PO QAM levothyroxine 25 mcg capsule 25 mcg PO DAILY nitroglycerin 0.4 mg tablet, sublingual 0.4 mg SUBLINGUAL Q5M PRN (Reason: Chest Pain) pantoprazole 40 mg tablet,delayed release (DR/EC) 40 mg PO DAILY vitamin [id number] acid 1,000-400 mcg Lozenge 1 boris SUBLINGUAL DAILY atorvastatin 20 mg tablet 20 mg PO QPM Discharge Orders: Discharge ED (Routine); Ordered 05/14/24 Ordered By: Willie Huffman Referrals: Mona Zambrano MD [Primary Care Provider] - Garcia Perales PA [Physician Hand Sewer] - 4-7 days Patient Instructions: Knee Pain (ED), Opioid Safety, Pain Management Activity Restrictions/Additional Instructions: Use crutches as needed to weight-bear for the next few days, but weightbearing is encouraged as soon as you are able. You may use the hinged knee brace you were prescribed. You can be fitted for this at [facility] across the street. Ice for pain and swelling. Medication as directed. You may call the orthopedic clinic tomorrow for follow-up appointment at the number above, or see your primary physician this coming week. Coding Level of Care Code ED Commissary Production Supervisor for Victoria Jenkins
--- NOTE | 2024-05-16 07:39 | DCPLANNER ---
Message sent to Ortho for RT knee effusion-
== END 2024-05-14 20:04 | disposition home or self-care (01) ==
PROVIDERS: Emergency Provider Emergency Medicine; PCP Family Medicine
DX: M25.461 Effusion, right knee (principal); E78.5 Hyperlipidemia, unspecified
CPT/HCPCS: 73562; 99283; J8540

== ENCOUNTER → 2024-05-25 15:04 | Outpatient (BNVA) | payer MEDICARE, SELFPAY | PROVIDERS: PCP Family Medicine; Visit Provider Physician Assistant | DX: S83.281A Other tear of lateral meniscus, current injury, right knee, initial encounter; M17.11 Unilateral primary osteoarthritis, right knee; W19.XXXA Unspecified fall, initial encounter | CPT/HCPCS: 73560; 73565; 99204 ==

== ENCOUNTER 2024-06-15 10:24 | Outpatient (CLI) | payer MEDICARE, SELFPAY ==
--- NOTE | 2024-06-15 10:33 | MM_ITS ---
WS: [id number] SCREENING DIGITAL BREAST TOMOSYNTHESIS MAMMOGRAM WITH CAD HISTORY: SCREENING COMPARISON: 03/19/2022, 08/08/2013 Bilateral CC and MLO with tomosynthesis and synthetic mammography submitted. Computer aided detection analyzed. Breast composition: There are scattered areas of fibroglandular density. Focal asymmetries in the krya tral RIGHT breast just lateral to the nipple line. These have been present on prior studies but maricel r seen today. LEFT breast is negative. MM/[place] [id number] IMPRESSION: BI-RADS: 0-Incomplete: Need additional imaging evaluation FOLLOW UP: Need Additional Imaging RIGHT breast: Spot compression views (CC and MLO). True ML. Ultrasound to follo w if abnormality persists.
== END 2024-06-15 10:25 | disposition home or self-care (01) ==
LOC: RAD 10:25
PROVIDERS: PCP Family Medicine; Visit Provider Family Medicine
DX: Z12.31 Encounter for screening mammogram for malignant neoplasm of breast (principal); N64.89 Other specified disorders of breast
CPT/HCPCS: 77063; 77067

== ENCOUNTER 2024-08-17 11:30 | Day surgery (SDC) | payer MEDICARE, SELFPAY ==
[2024-08-17] VITALS (8 sets, daily range): BP systolic 123–141; BP diastolic 62–89; PULSE 76–87; RESP 16–17; TEMP 36.2–36.9; O2SAT 93–98; BMI 25.8
[2024-08-17] MEDS: sodium chloride 0.9% 1,000 ML 30 ML IV (12:16)
[2024-08-17] MEDS: acetaminophen 1,000 MG/100 ML PIGGYBACK 400 MG IV (12:17)
[2024-08-17] MEDS: ketorolac 30 mg/mL INJ IVP (12:17)
--- NOTE | 2024-08-17 12:46 | ANES.PREANE2 ---
Pre-Anesthetic Assessment Height/Weight: Height 1.68 m Weight 72.575 kg Temp Pulse Resp BP Pulse Ox O2 Del Method 98.4 F 76 17 141/89 93 Room Air 08/17/24 11:52 08/17/24 11:52 08/17/24 11:52 08/17/24 11:52 08/17/24 11:52 08/17/24 11:57 Operation Date: 08/17/24 13:55 Proposed Procedures p Knee Arthroscopy Knee Arthroscopy w/partial Lateral Menisectomy vs. repair(Right) - Cassius Perales DO Familial anesthetic complications: None Was Beta Rita taken within 24 hours: Yes Was Clonidine taken within 24 hours: N/A Last intake: Intake Last Liquid Date 08/17/24 Last Liquid Time 07:45 Last Solid Date 08/16/24 Last Solid Time 18:30 Social No alcohol and No tobacco Exam alert, oriented x 3, clear to auscultation bilaterally and regular rate & rhythm Airway Mallampati: Class I Dentition: partials CV/HEM Palpitations GI Gastroesophageal Reflux Disease Metabolic Hyperlipidemia and Thyroid Disease Anesthetic Plan ASA status: 2 Anesthesia: General Risk of > 500 ml blood loss (7ml/kg in children): No Medications/Allergies Home Medications Medication Instructions Recorded Confirmed Last Taken Type levothyroxine 25 mcg capsule 25 mcg PO DAILY 11/13/19 08/16/24 08/17/24 History nitroglycerin 0.4 mg sublingual 0.4 mg sublingual Q5M PRN Chest 11/13/19 08/16/24 Unknown History tablet Pain pantoprazole 40 mg tablet,delayed 40 mg PO DAILY 11/13/19 08/16/24 08/16/24 History release venlafaxine 37.5 mg 37.5 mg PO QAM 11/20/19 08/16/24 08/16/24 History capsule,extended release 24 hr metoprolol succinate 25 mg 25 mg PO DAILY 11/18/20 08/16/24 08/17/24 History tablet,extended release 24 hr atorvastatin 20 mg tablet 20 mg PO QPM 05/30/23 08/16/24 08/17/24 History vitamin B12 1,000 mcg-folic acid 1 boris sublingual DAILY 05/30/23 08/16/24 08/17/24 History 400 mcg sublingual lozenge methylprednisolone 4 mg tablets in See Rx Instructions PO .COMPLEX 05/14/24 08/16/24 08/16/24 Rx a dose pack (Medrol (Mookie)) #21 ea Allergies Allergy/AdvReac Type Severity Reaction Status Date / Time hydrocodone Allergy Severe ALGY-Rash Verified 08/16/24 11:47 tramadol AdvReac Unknown ADR-Dizzine Verified 08/16/24 11:47 ss Current Medications Generic Name Dose Route Start Last Admin Trade Name Freq PRN Reason Stop Dose Admin Sodium Chloride 1,000 mls @ 30 mls/hr 08/17/24 11:45 08/17/24 12:16 Sodium Chloride 0.9% IV 08/18/24 11:44 30 mls/hr .Q24H JOSEPH Administration PFSH Anesthesia Medical History Palpitations GERD (gastroesophageal reflux disease) Hypothyroidism Hyperlipidemia Raynaud phenomenon Diverticulosis Edema Surgical History S/P cholecystectomy LAPAROSCOPIC 2009 S/P hysterectomy 1988 S/P tubal ligation 1983 Family History Sister Stroke Heart disease Mother Heart disease Diabetes Hypertension Father Heart disease Brother Heart disease Son Cancer COLON Social History Smoking and tobacco/nicotine status: never used tobacco/nicotine Alcohol intake: current Alcohol intake frequency: holidays/special occasions only Substance/Drug Use: never Data Anesthesia Cardiac Studies: No Data to Display
--- NOTE | 2024-08-17 14:09 | W.PM.OPSFHP ---
Same Day Surgery H&P Indication for Procedure/HPI DATE OF PROCEDURE: August 17, 2024 CHIEF COMPLAINT/INDICATIONFOR SURGICAL PROCEDURE: Right knee lateral meniscus tear PREOP DIAGNOSIS: Right knee lateral meniscus tear, knee chondromalacia PLANNED PROCEDURE: Operation Date: 08/17/24 13:55 Proposed Procedures p Knee Arthroscopy Knee Arthroscopy w/partial Lateral Menisectomy vs. repair(Right) - Cassius Perales DO Medications/Allergies* Home Medications Medication Instructions Recorded Confirmed Type levothyroxine 25 mcg capsule 25 mcg PO DAILY 11/13/19 08/16/24 History nitroglycerin 0.4 mg sublingual 0.4 mg sublingual Q5M PRN Chest 11/13/19 08/16/24 History tablet Pain pantoprazole 40 mg tablet,delayed 40 mg PO DAILY 11/13/19 08/16/24 History release venlafaxine 37.5 mg 37.5 mg PO QAM 11/20/19 08/16/24 History capsule,extended release 24 hr metoprolol succinate 25 mg 25 mg PO DAILY 11/18/20 08/16/24 History tablet,extended release 24 hr atorvastatin 20 mg tablet 20 mg PO QPM 05/30/23 08/16/24 History vitamin B12 1,000 mcg-folic acid 1 boris sublingual DAILY 05/30/23 08/16/24 History 400 mcg sublingual lozenge Allergies/Adverse Reactions Allergy/AdvReac Type Severity Reaction Status Date / Time hydrocodone Allergy Severe ALGY-Rash Verified 08/16/24 11:47 tramadol AdvReac Unknown ADR-Dizzine Verified 08/16/24 11:47 ss Current Medications: Generic Name Dose Route Start Last Admin Trade Name Freq PRN Reason Stop Dose Admin Sodium Chloride 1,000 mls @ 30 mls/hr 08/17/24 11:45 08/17/24 12:16 Sodium Chloride 0.9% IV 08/18/24 11:44 30 mls/hr .Q24H JOSEPH Administration Pertinent History/Comorbid Conditions* Medical History (Updated 05/25/24 @ 15:53 by BHAVIK Villaseñor) Palpitations GERD (gastroesophageal reflux disease) Hypothyroidism Hyperlipidemia Raynaud phenomenon Diverticulosis Edema Surgical History (Updated 11/20/19 @ 12:45 by Marion Mishra MD) S/P cholecystectomy LAPAROSCOPIC 2009 S/P hysterectomy 1988 S/P tubal ligation 1983 Family History (Updated 11/13/19 @ 20:55 by Ellen Lopez RN) Diabetes Mother Heart disease Sister Mother Father Brother Cancer Son COLON Hypertension Mother Stroke Sister Social History Smoking and tobacco/nicotine status: never used tobacco/nicotine Alcohol intake: current Alcohol intake frequency: holidays/special occasions only Substance/Drug Use: never Pertinent Exam Findings alert, oriented x 3, operative site marked and procedure specific exam findings Please refer to detailed orthopedic examination on 05/25/2024: Right Knee exam -Positive joint effusion -ROM 0- 100 degrees -Medial and lateral joint line tenderness -Negative Pema's -Negative valgus, negative varus -Positive Dahlia's test with pain and no clicking -Patient can wiggle toes and has a pedal pulse of 2+. Recommendations Surgery/Procedure today Other Plans: Plan to proceed to the OR today for right knee diagnostic and surgical arthroscopy with partial lateral meniscectomy versus repair. Patient understands the ins and outs of procedure the risk benefits complication alternatives surgery and through shared decision-making elects proceed with surgical intervention. All questions have been answered at this time. Will proceed with surgery today. Coding Level of Care Code Acute Code for Chg Fwmeir
[2024-08-17] MEDS: ceFAZolin 2,000 MG in sodium chloride 0.9% (plus) 50 ML 100 MG IV (14:16)
[2024-08-17] MEDS: lidocaine-epi 2% PF 1:200,000 20 mL SDV 40 ML XX (15:17)
--- NOTE | 2024-08-17 16:00 | W.PM.BPON ---
Date of Procedure: [08/17/2024] Surgeon: [Cassius Perales DO] Store Facility Technician(s): None Procedure(s) performed: Right knee diagnostic and surgical arthroscopy with partial medial meniscectomy Right knee diagnostic and surgical arthroscopy with partial lateral meniscectomy Right knee diagnostic and surgical arthroscopy with medial and patellofemoral compartment chondroplasty Right knee diagnostic and surgical arthroscopy with extensive synovectomy (medial lateral patellofemoral compartments) Findings of the procedure(s): [Patient was found to have chondromalacia throughout the knee worse in the medial and patellofemoral compartments patient did have a small tear of the posterior horn of the medial meniscus as well as a significant tear in the lateral meniscus appeared that she had 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 Taken to PACU in stable condition.] Estimated blood loss: [5 mL] Specimen(s) removed: [None] Post-operative diagnosis: [Right knee medial and lateral meniscus tears, extensive synovitis and chondromalacia]
--- NOTE | 2024-08-17 16:01 | P.OP_ITS ---
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 Procedure done: Right knee diagnostic and surgical arthroscopy with partial medial meniscectomy Right knee diagnostic and surgical arthroscopy with partial lateral meniscectomy Right knee diagnostic and surgical arthroscopy with medial and patellofemoral compartment chondroplasty Right knee diagnostic and surgical arthroscopy with extensive synovectomy (medial lateral patellofemoral compartments) Surgeon: Cassius Perales DO Estimated blood loss: 5mL Tourniquet: No tourniquet was used IV fluids: See anesthesia record Complications: None Findings: See operative report narrative Condition: stable Disposition: same day Brief History: Patient is a 64-year-old male with right?knee?pain.? Patient has failed conservative treatment who has been worked up for right??knee?pain in the outpatient setting. MRI findings consistent with tear of the lateral meniscus. talked in the office about treatment options patient would like to proceed with a right?knee?diagnostic and surgical arthroscopy with partial lateral meniscectomy vs repair.? Patient understand the ins and outs of the procedure the risk benefits complication alternatives to treatment options.? Understanding risk of surgery they agree to proceed with surgical intervention.? Patient understand this may not provide patient with complete symptomatic relief of? pain as patient does have some underlying arthritis.? Understanding this and patient agree to proceed with surgical intervention all questions answered. Procedure: Patient seen and evaluated in the preoperative holding area.? Consent was reviewed and signed with patient.? Correct extremity was then marked.? Patient seen evaluated Anesthesia Department once cleared for surgery patient was taken back to the operative suite.? Patient was transported onto the OR table in supine position.? All bony prominences well-padded patient was appropriate secured to the bed.? Once appropriately anesthetized a nonsterile tourniquet was applied to the right thigh.? The right lower extremity was then prepped and draped in standard orthopedic fashion.? Final timeout performed.? Patient received appropriate preoperative antibiotics. Patient received local anesthetic of lidocaine with epinephrine into the joint as well as around the portal sites.? No tourniquet was inflated A standard 2 portal vertical incision diagnostic and surgical arthroscopy of the right?knee?was performed in standard fashion.? Small stab incision made in the inferolateral portal introduced trocar and arthroscope into the suprapatellar pouch.? Suprapatellar pouch was subsequently visualized and found to have significant synovitis but no loose bodies.? Patient had noticeable significant inflamed infrapatellar fat pad and thickening hypertrophic within the patellofemoral compartment.? ?The medial gutter was free of loose bodies I then introduced the arthroscope into the medial compartment.? Within the medial compartment I then established my inferior medial working portal utilizing spinal needle outside in technique.? Once established I then visualized our articular cartilage of the medial compartment with a valgus stress.? Patient was found to have grade 2-3 chondromalacia throughout the medial compartment.? Next I inspected the meniscus.? With an arthroscopic probe was utilized to visual? all aspects of the meniscus.? Meniscal root was found to be intact.? Meniscus was found to be small tear at the body to posterior horn junction.? I then subsequently introduced a basket forceps as well as arthroscopic shaver to perform a partial medial meniscectomy to stable meniscal tissue and then utilized a thermal wand to anneal the edges.? Next, I then performed a synovectomy of the medial compartment.? Given patient's chondromalacia there was areas of unstable articular cartilage and I subsequently performed a chondroplasty with arthroscop ic shaver and thermal wand.? This completed medial compartment work. Next a introduced the arthroscope to the intercondylar notch.? PCL and ACL were intact. patient had significant thickening of the infrapatellar fat pad spanning into the medial and lateral compartments.? I then performed an extensive synovectomy with the arthroscopic shaver of the patellofemoral medial and lateral compartments as well as the intercondylar notch. Advance the?scope?into the retrocruciate space and no loose bodies were found. Next I introduced the arthroscope into the lateral compartment the lateral compartment was found to have grade 1-2 chondromalacia.? Immediately encountering the lateral compartment patient had a flipped meniscus tear inside the intercondylar notch further inspection after performing a varus distraction of the lateral compartment demonstrates patient had a discoid meniscus this was roughly 90% of the meniscus was appeared to be discoid and subsequently had a tear with this I subsequently the tear was throughout the entirety of the meniscus and as a result was able to perform a standard saucerization and removal of the meniscus tear creating a more standard lateral meniscus. I performed this with arthroscopic shaver and arthroscopic biters and take this to stable meniscal tissue and saucerization. The root was intact.? Given the grade 1-2 chondromalacia there is no unstable cartilage pieces to perform chondroplasty.? This completed my work of the lateral compartment and then performed a synovectomy of the lateral compartment.? Next of the arthroscope was placed into the lateral gutter and this was free of loose bodies.? Finally I reintroduced the arthroscope into the patellofemoral compartment.? The patellofemoral was found to have grade 2-3 chondromalacia of the patellofemoral compartment.? I then utilized a thermal wand and arthroscopic shaver to complete the chondroplasty of the patellofemoral space to stable articular tissue. At this point I utilized arthroscopic shaver as well as thermal wand to perform extensive synovectomy of the patellofemoral compartment. This completed my work of the patellofemoral space.? I then switch my portal sites to the medial working portal.? Completed the rest of my synovectomy and the rest of my examination arthroscopy was normal. All fluid was suctioned from the joint.? ?All instruments were withdrawn.? Portal sites were closed with interrupted nylon suture.? portal sites were then covered with with Xeroform 4 x 4's ABD Curlex and Davion wrap.? Patient was then subsequently awakened from anesthesia and taken to PACU in stable condition. Disposition: Patient taken to PACU in stable condition recovering well.? Will receive appropriate discharge structure as well as pain medication postoperatively as well as? DVT prophylaxis.we will have patient follow-up with us in the office in 2 weeks.? We will weightbearing as tolerated to the right lower extremity.? Patient understands and agrees with current plan.? All questions answered.
--- NOTE | 2024-08-17 16:30 | ANE.PACU2 ---
Inpatient post-anesthesia follow up: Airway intact: Yes Vital signs: Temperature 97.2 F Pulse Rate 82 Respiratory Rate 17 Blood Pressure 126/78 Pulse Oximetry 97 Oxygen Delivery Me thod Room Air Oxygen Flow Rate 6 Fraction of Inspir ed Oxygen Hydration adequate: Yes Nausea and vomiting: No Pain level: 1 Mental status: Baseline
== END 2024-08-17 16:31 | disposition home or self-care (01) ==
PROVIDERS: PCP Family Medicine; Visit Provider Student in an Organized Health Care Education/Training Program
PROC: (CPT 29870; principal; 2024-08-17 13:45)
PROC: (CPT 29876; 2024-08-17 13:45)
PROC: (CPT 29876; 2024-08-17 13:45)
DX: S83.241A Other tear of medial meniscus, current injury, right knee, initial encounter (principal); S83.281A Other tear of lateral meniscus, current injury, right knee, initial encounter; X58.XXXA Exposure to other specified factors, initial encounter; M65.961 Unspecified synovitis and tenosynovitis, right lower leg; K21.9 Gastro-esophageal reflux disease without esophagitis; E78.5 Hyperlipidemia, unspecified; E03.9 Hypothyroidism, unspecified
CPT/HCPCS: 29876; 29881; J0131; J0690; J1100; J1885; J2250; J2405; J2704; J3010; J7030

== ENCOUNTER → 2024-08-30 10:07 | Outpatient (BNVA) | payer MEDICARE, SELFPAY | PROVIDERS: PCP Family Medicine; Visit Provider Physician Assistant | DX: Z98.890 Other specified postprocedural states (principal); M17.11 Unilateral primary osteoarthritis, right knee | CPT/HCPCS: 99024 ==

== ENCOUNTER 2024-10-31 09:12 | Outpatient (CLI) | payer MEDICARE, SELFPAY ==
--- NOTE | 2024-10-31 09:18 | MM_ITS ---
WS: [id number] ADDITIONAL VIEWS RIGHT MAMMOGRAM WITH DIGITAL BREAST TOMOSYNTHESIS. RIGHT BREAST ULTRASOUND HISTORY: ABNORMAL MAMMOGRAM COMPARISON: 06/15/2024, 03/19/2022 RIGHT MAMMOGRAM: Spot compression views and true ML with digital breast tomosynthesis and SM. Asymmetries persist just central to the nipple towards 12:00 in the anterior RIGHT breast. These are only seen on the CC projection. No distortion. Ultrasound to follow. RIGHT BREAST ULTRASOUND 2-D and color Doppler imaging submitted. No abnormality noted in the RIGHT breast near 11 through 1:00. There are no areas of shadowing or sof t tissue mass. No cystic mass. MM/MM diag RT tomosynthesis [id number] IMPRESSION: BI-RADS: 2- Benign FOLLOW UP: 1 Year Follow-up
== END 2024-10-31 09:13 | disposition home or self-care (01) ==
LOC: RAD 09:14
PROVIDERS: PCP Family Medicine; Visit Provider Family Medicine
DX: R92.8 Other abnormal and inconclusive findings on diagnostic imaging of breast (principal)
CPT/HCPCS: 76642; 77061; G0279

== ENCOUNTER → 2024-11-21 10:14 | Outpatient (BNVA) | payer MEDICARE, SELFPAY | PROVIDERS: PCP Family Medicine; Visit Provider Student in an Organized Health Care Education/Training Program | DX: Z98.890 Other specified postprocedural states (principal); M17.11 Unilateral primary osteoarthritis, right knee; M76.31 Iliotibial band syndrome, right leg | CPT/HCPCS: 99213 ==

== ENCOUNTER 2025-08-22 15:28 | Outpatient (CLI) | payer MEDICARE, SELFPAY ==
--- NOTE | 2025-08-22 15:37 | XR_ITS ---
WS: [id number] XR lumbar spine min 4V [id number] REASON FOR EXAM: LOW BACK PAIN, LT BUTTOCK PAIN, FALL FINDINGS: Posterior decompression with pedicle screws and interconnecting rods and interbody fusion device L4-L5. Moderate anterolisthesis of L4 on L5. No previous postoperative examination for comparison. Surgical appliances are intact and in proper position and alignment. No significant vertebral body compression deformity or focal lesion. Moderate narrowing of the L5-S1 disc space with moderate endplate sclerosis and osteophytosis. XR/XR lumbar spine min 4V [id number] IMPRESSION: Posterior lumbar fusion which appears intact. No lumbar compression fracture identified. Degenerative spondylosis at L5-S1.
--- NOTE | 2025-08-22 15:37 | XR_ITS ---
WS: [id number] XR pelvis 1-2V* [id number] REASON FOR EXAM: LOW BACK PAIN, LT BUTTOCK PAIN, FALL FINDINGS: Sacrum is intact. Coccyx not well evaluated without a lateral view. Remainder of the bony pelvis is without significant focal abnormality. XR/XR pelvis 1-2V* [id number] IMPRESSION: No significant abnormality.
== END 2025-08-22 15:29 | disposition home or self-care (01) ==
LOC: RAD 15:31
PROVIDERS: PCP Family Medicine; Visit Provider Nurse Practitioner Family
DX: M48.061 Spinal stenosis, lumbar region without neurogenic claudication (principal); W19.XXXA Unspecified fall, initial encounter; M25.78 Osteophyte, vertebrae; M47.816 Spondylosis without myelopathy or radiculopathy, lumbar region
CPT/HCPCS: 72110; 72170

== ENCOUNTER 2025-11-04 17:13 | Emergency (ER) | payer SELFPAY ==
--- OUTSIDE RECORDS SUMMARY | 2025-11-04 17:20 | XMS_ITS | Clinical Summary ---
Author Organization [facility] Address [address] [place] [address] Care Team Providers Care Box Stamper Name Role Phone Unavailable Primary Care Provider Unavailabl e Medications aspirin (ECOTRIN EC) 81 mg Tablet, Delayed Release (E.C.) Take 81 mg by mouth daily. 03/07/2021 Active metoprolol tartrate (LOPRESSOR) 25 mg tablet Take 25 mg by mouth 2 times daily. 03/07/2021 Active meloxicam (MOBIC) 15 mg tablet Take 1 Tablet (15 mg) by mouth daily. 30 Tablet 1 03/07/2021 Active pantoprazole (PROTONIX) 40 mg Tablet, Delayed Release (E.C.) Take 40 mg by mouth daily. 03/07/2021 Active nitroglycerin (NITROSTAT) 0.4 mg Tablet, Sublingual Place 0.4 mg under tongue every 5 minutes as needed for Chest Pain. 03/07/2021 Active levothyroxine 25 mcg tablet Take 25 mcg by mouth daily in the morning. 03/07/2021 Active venlafaxine (EFFEXOR) 75 mg tablet Take 75 mg by mouth 3 times daily. 03/07/2021 Active Family History Medical History Relation Name Comments Osteoporosis Neg Hx Social History Tobacco Use Types Packs/Day Years Used Date Smoking Tobacco: Never Comments Unknown Sex and Gender Information Value Date Recorded Sex Assigned at Not on file Legal Sex Female 10:31 AM CDT Gender Identity Not on file Sexual Orientation Not on file Last Filed Vital Signs Vital Sign Reading Time Taken Comments Blood Pressure 149/83 03/07/2021 10:26 AM CDT Pulse 72 03/07/2021 10:26 AM CDT Temperature - - Respiratory Rate - - Oxygen Saturation - - Inhaled Oxygen Concentration - - Weight 68.9 kg (152 lb) 03/07/2021 10:26 AM CDT Height 167.6 cm (5' 6 ) 03/07/2021 10:26 AM CDT Body Mass Index 24.53 03/07/2021 10:26 AM CDT Plan of Treatment Health Maintenance Due Date Last Done Comments DTAP/TDAP/TD VACCINES (1 - Tdap) 1977 BREAST CANCER SCREENING 1998 COLORECTAL SCREENING 2003 Colorectal Cancer Screening 2003 FIT-DNA Q 3 years 2003 FIT/FOBT Q 1 year 2003 Flex Sig/CT Colonography Q 5 years 2003 PNEUMOCOCCAL VACCINE 50+ YEARS (1 of 1 - PCV) 03/25/20 08 ZOSTER VACCINE (1 of 2) 2008 OSTEOPOROSIS SCREENING 2023 INFLUENZA VACCINE (#1) 2025 RSV VACCINE (60+ or ) (1 - 1-dose 75+ series) 2033
--- OUTSIDE RECORDS SUMMARY | 2025-11-04 17:20 | XMS_ITS | Clinical Summary ---
Author Organization [facility] Address [address] [place] [address] Care Team Providers Care Golf Course Architect Name Role Phone Unavailable Primary Care Provider Unavailabl e Medications aspirin (ECOTRIN EC) 81 mg Tablet, Delayed Release (E.C.) Take 81 mg by mouth daily. Active venlafaxine (EFFEXOR) 75 mg tablet Take 75 mg by mouth 3 times daily. Active pantoprazole (PROTONIX) 40 mg Tablet, Delayed Release (E.C.) Take 40 mg by mouth daily. Active levothyroxine 25 mcg tablet Take 25 mcg by mouth daily in the morning. Active nitroglycerin (NITROSTAT) 0.4 mg Tablet, Sublingual Place 0.4 mg under tongue every 5 minutes as needed for Chest Pain. Active metoprolol tartrate (LOPRESSOR) 25 mg tablet Take 25 mg by mouth 2 times daily. Active meloxicam (Mobic) 15 mg tablet Take 1 Tablet (15 mg) by mouth daily. 30 Tablet 1 03/07/2021 Active Active Problems No known active problems Family History Medical History Relation Name Comments Osteoporosis Neg Hx Social History Tobacco Use Types Packs/Day Years Used Date Smoking Tobacco: Never Comments Unknown Sex and Gender Information Value Date Recorded Sex Assigned at Not on file Legal Sex Female 10:00 AM CDT Gender Identity Not on file [...] ) (1 - 1-dose 75+ series) 2033 Insurance Element ID SARAH AMOS [id number]
[2025-11-04 17:29] VITALS: BP 151/86; PULSE 106; RESP 15; TEMP 36.8; O2SAT 96
--- NOTE | 2025-11-04 17:34 | ECG_ITS ---
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: : 1960 Requested By: Raúl Andrade Order Number: [id number] Bulmaro MD: EVARISTO REINA Measurements Intervals [place] Rate: 108 P: 53 NM: 177 QRS: -57 QRSD: 111 T: 80 QT: 342 QTc: 459 Interpretive Statements SINUS TACHYCARDIA POSSIBLE LEFT ATRIAL ENLARGEMENT [-0.1mV P-WAVE IN V1/V2] LEFT ANTERIOR FASCICULAR BLOCK [QRS AXIS <= -45, QR IN I, RS IN II] LEFT VENTRICULAR HYPERTROPHY AND ST-T CHANGE [VOLTAGE CRITERIA PLUS ST/T ABNORMALITY] POSSIBLE ANTERIOR MYOCARDIAL INFARCTION , OF INDETERMINATE AGE [30 ms Q WAVE IN V3/V4, OR R < 0.2 mV IN V4] INTERPRETATION BASED ON A DEFAULT AGE OF 40 YEARS Electronically Signed On 11-04-2025 23:17:52 EXECUTIVE MARKETING ASSISTANT by EVARISTO REINA [email or web address]
[2025-11-04 19:44] VITALS: BP 157/92; PULSE 104; O2SAT 96
--- NOTE | 2025-11-04 19:53 | XRR_ITS ---
PROCEDURE INFORMATION: Exam: XR Chest Exam date and time: 11/04/2025 7:54 PM Age: 65 years old Clinical indication: Pain; Chest pressure; Additional info: Chest pain TECHNIQUE: Imaging protocol: Radiologic exam of the chest. Views: 1 view. COMPARISON: CR XR chest 2V* [id number] 02/17/2022 10:44 AM FINDINGS: Lungs: Pulmonary vessels are within normal limits. Left basilar infiltrate. Right lung is clear. Pleural spaces: No pneumothorax. Heart/Mediastinum: Cardiomediastinal silhouette is within normal limits. Bones/joints: Unremarkable. XR/XR chest 1V portable [id number] IMPRESSION: Left basilar infiltrate. Finding could represent pneumonic process. Imaging follow-up until resolution is advised.
[2025-11-04 19:59] LABS: Hematocrit 41.2 % (36-47); Hemoglobin 13.30 g/dL (11.27-16.99); Mean Corpuscular HGB Conc 32.3 g/dL (30-55); Mean Corpuscular Hemoglobin 30.1 pg (27-33); Mean Corpuscular Volume 93.2 fl (85-98); Nucleated Red Blood Cells % 0 %; Platelet Count 283 10^3/cmm (157-399); Red Blood Count 4.42 10^6/uL (3.85-5.65); White Blood Count 10.53 10^3/uL (3.29-11.43)
[2025-11-04 20:00] VITALS: BP 152/80; PULSE 97; O2SAT 97
--- NOTE | 2025-11-04 20:00 | ECG_ITS ---
[facility]: [facility]25-11[facility]04 Pat Name: Liz Sin Department: Room: Gender: Female Energy And Sustainability Manager: : 1960 Requested By: Kita Lyon Order Number: [id number] Reading MD: EVARISTO REINA Measurements Intervals [place] Rate: 93 P: 76 NE: 174 QRS: -71 QRSD: 133 T: 84 QT: 365 QTc: 455 Interpretive Statements SINUS RHYTHM INTRAVENTRICULAR CONDUCTION DELAY [130+ ms QRS DURATION] LEFT VENTRICULAR HYPERTROPHY AND ST-T CHANGE [VOLTAGE CRITERIA PLUS ST/T ABNORMALITY] Compared to ECG 11/04/2025 17:34:31 Intraventricular conduction delay now present Sinus tachycardia no longer present Left anterior fascicular block no longer present Myocardial infarct finding no longer present ST (T wave) deviation still present Electronically Signed On 11-04-2025 22:49:16 DEALER RELATIONSHIP MANAGER by EVARISTO REINA [email or web address]
--- NOTE | 2025-11-04 20:04 | W.ED.CHESTPA ---
HPI - Chest Pain General: Chief Complaint: Recheck/Abnormal Lab/Rx Stated Complaint: abnormal EKG sent by urgent care Time Seen by Provider: 11/04/25 19:53 Source: patient Mode of arrival: ambulatory Limitations: no limitations History of Present Illness: Patient is a 65-year-old female presents to ED today after she was seen at the walk-in clinic and referred to the emergency department for further evaluation. Patient tells me that she has not felt good all day reporting she has felt tired. She has also had some mild anterior chest discomforts. These have pretty well resolved upon arrival and during my encounter with patient. She has told me during the day she thought she may have pneumonia as her chest just felt heavy. This seemed to worsen with lying flat. Again she tells me currently she does not feel short of breath nor is she experiencing chest pain. She has no known cardiac or pulmonary history. She does still feel tired. Has had sick contact with a sick grandchild. No recent surgeries. No leg swelling. She arrives here in no acute distress with stable vital signs. MD complaint: chest pain Onset (ago): hour(s) Timing of current episode: now resolved Prior episodes: No Onset: during rest Pain location: substernal Pain radiation: none Severity: mild Quality: heaviness Relieving factors: nothing Exacerbating factors: nothing Associated symptoms: Reports no associated symptoms and dyspnea (resolved); Deny abdominal pain, fever(s), nausea, palpitations, syncope or vomiting Treatment prior to arrival: none Risk Factors: Coronary artery disease risk factors: none Thoracic aortic dissection risk factors: none Related Data Home Medications ?Medication ?Instructions ?Recorded ?Confirmed levothyroxine 25 mcg capsule 25 mcg PO DAILY 11/13/19 11/04/25 pantoprazole 40 mg tablet,delayed 40 mg PO DAILY 11/13/19 11/04/25 release venlafaxine 37.5 mg 37.5 mg PO QAM 11/20/19 11/04/25 capsule,extended release 24 hr metoprolol succinate 25 mg 25 mg PO DAILY 11/18/20 11/04/25 tablet,extended release 24 hr atorvastatin 20 mg tablet 20 mg PO QPM 05/30/23 11/04/25 vitamin B12 1,000 mcg-folic acid 1 boris sublingual DAILY 05/30/23 11/04/25 400 mcg sublingual lozenge Previous Rx's ?Medication ?Instructions ?Recorded levofloxacin 500 mg tablet 500 mg PO DAILY 7 days #7 tabs 11/04/25 Allergies Allergy/AdvReac Type Severity Reaction Status Date / Time hydrocodone Allergy Severe ALGY-Rash Verified 11/04/25 17:41 tramadol AdvReac Unknown ADR-Dizzine Verified 11/04/25 17:41 ss Review of Systems Const: Reports: chills, fatigue and malaise; Denies: fever(s), body aches, change in appetite or change in weight Eyes: Denies: change in vision, blurry vision, photophobia, eye discomfort, floaters or seeing flashes ENMT: Denies: throat pain, odynophagia, ear or mastoid pain, nasal discharge, nasal congestion or sinus pain Card: Reports: chest pain (resolved); Denies: palpitations, irregular heart rhythm, edema, swelling of feet/ankles, lightheadedness, syncope, pre-syncope, dyspnea on exertion, leg pain with exertion or acrocyanosis Resp: Reports: dyspnea (resolved); Denies: productive cough, non-productive cough, wheezing, change in phlegm color, hemoptysis or chest congestion GI: Denies: abdominal pain, nausea, vomiting or diarrhea : Denies: flank pain, dysuria or hematuria Musc: Denies: neck pain, back pain, extremity pain, extremity swelling, joint pain or joint swelling Skin/Breast: Denies: rash Neuro: Denies: headache(s), numbness in extremities, weakness in extremities or sensory changes PFSH ED PFSH: Medical History Palpitations GERD (gastroesophageal reflux disease) Hypothyroidism Hyperlipidemia Raynaud phenomenon Diverticulosis Edema Surgical History S/P cholecystectomy LAPAROSCOPIC 2009 S/P hysterectomy 1988 S/P tubal ligation 1983 Family History Sister Stroke Heart disease Mother Heart disease Diabetes Hypertension Father Heart disease Brother Heart disease Son Cancer COLON Social History Smoking and tobacco/nicotine status: never used tobacco/nicotine Alcohol intake: current Alcohol intake frequency: holidays/special occasions only Substance/Drug Use: never Physical Exam Const: COMMON NORMALS: no acute distress, average body habitus, patient oriented x3, no limitations, healthy appearing, alert and well nourished GENERAL APPEARANCE: cooperative ORIENTATION/CONSCIOUSNESS: Yes awake, Yes oriented to person, Yes oriented to place and Yes oriented to time HENMT: COMMON NORMALS: normocephalic and atraumatic HEAD & SCALP: normal to inspection, normocephalic and atraumatic FACE & SINUS: normal facial exam Neck/C-Spine: COMMON NORMALS: full ROM, no lymphadenopathy, supple, no meningeal signs and no JVD Chest: COMMONS NORMALS: normal inspection of the chest and normal palpation of entire chest wall Resp: COMMON NORMALS: normal respiratory effort and clear to auscultation bilaterally AUSCULTATION: clear to auscultation bilaterally Cardio: COMMON NORMALS: no JVD, regular rate and regular rhythm RATE: regular rate RHYTHM: regular rhythm GI: COMMON NORMALS: Normal to inspection, nondistended, normoactive bowel sounds present, Soft to palpation, non-tender, No hepatosplenomegaly present and no masses PALPATION: Yes Soft to palpation and Yes No hepatosplenomegaly present : COMMON NORMALS: Yes no CVA tenderness BLADDER/KIDNEY EXAM: Yes no CVA tenderness Back/Pelvis: COMMON NORMALS: no CVA tenderness and thoracic and lumbar spine normal to inspection Extremity: COMMON NORMALS: normal to inspection, capillary refill normal, no clubbing, cyanosis or edema, no calf tenderness and no pedal edema GENERAL: Yes normal exam except as noted Neuro: JESUS COMA SCALE: document GCS findings Jesus coma scale eye opening: Spontaneous [place] coma scale verbal response: Orientated Jesus coma scale motor response: Obey commands Jesus coma scale total score: 15 COMMON NORMALS: patient oriented x3, moves all extremities, no focal motor deficits, no sensory deficits noted and gait normal SENSORIUM/ORIENTATION: Yes alert, Yes oriented to person, Yes oriented to place and Yes oriented to time MENINGEAL SIGNS: Yes no meningeal signs Skin: COMMON NORMALS: no rashes or lesions noted GENERAL SKIN EXAM: no rashes or lesions noted Course Vital Signs: Vital signs: Vital Signs Temperature 98.2 F 11/04/25 17:29 Pulse Rate 88 11/04/25 21:41 Respiratory Rate 15 11/04/25 17:29 Blood Pressure 186/91 11/04/25 21:41 Pulse Oximetry 97 11/04/25 21:41 Oxygen Delivery Me thod Room Air 11/04/25 21:00 MDM - Chest Pain Medical Decision Making Patient is a 65-year-old female here for chest pain and shortness of breath that was present earlier today but has pretty much subsided upon arrival. Her vital signs are stable. She clinically appears in no acute distress. Blood work overall is unremarkable. Baseline troponin of 12 with a nonsignificant delta. Mild elevation to her BNP at 473-clinically patient is not fluid overloaded. This was elevated back in 2022 at 156. CXR does show a left basilar infiltrate. Patient will be placed on antibiotics and recommend she follow-up with her primary care provider later this week. They can determine any further need for cardiac stress testing if chest pains persist. Return ED precautions discussed. Medical Records I reviewed the patient's medical records. Lab Data I reviewed the patient's lab results. 11/04/25 19:48 11/04/25 19:48 Radiology Impressions Chest X-Ray 11/04/25 19:53 IMPRESSION: Left basilar infiltrate. Finding could represent pneumonic process. Imaging follow-up until resolution is advised. Laboratory Results WBC 10.53 10^3/uL (3.29-11.43) 11/04/25 19:48 RBC 4.42 10^6/uL (3.85-5.65) 11/04/25 19:48 Hgb 13.30 g/dL (11.27-16.99) 11/04/25 19:48 Hct 41.2 % (36-47) 11/04/25 19:48 MCV 93.2 fl (85-98) 11/04/25 19:48 MCH 30.1 pg (27-33) 11/04/25 19:48 MCHC 32.3 g/dL (30-55) 11/04/25 19:48 RDW 12.9 % (12.1-15.1) 11/04/25 19:48 Plt Count 283 10^3/cmm (157-399) 11/04/25 19:48 MPV 9.5 fL (7.4-10.4) 11/04/25 19:48 Neut % (Auto) 80.2 % 11/04/25 19:48 Lymph % (Auto) 11.7 % 11/04/25 19:48 [place] % (Auto) 7.4 % 11/04/25 19:48 Eos % (Auto) 0.0 % 11/04/25 19:48 Baso % (Auto) 0.5 % 11/04/25 19:48 Neut # (Auto) 8.45 10^3/uL (1.8-7.7) H 11/04/25 19:48 Lymph # (Auto) 1.2 10^3/uL (0.8-4.8) 11/04/25 19:48 [place] # (Auto) 0.8 10^3/uL (0.2-0.9) 11/04/25 19:48 Eos # (Auto) 0.0 10^3/uL (0.0-0.8) 11/04/25 19:48 Baso # (Auto) 0.1 10^3/uL (0.0-0.1) 11/04/25 19:48 Nucleated RBC % (auto) 0 % 11/04/25 19:48 Nucleated RBCs # 0.0 /100WBC 11/04/25 19:48 Sodium 140 mmol/L (136-145) 11/04/25 19:48 Potassium 4.3 mmol/L (3.5-5.1) 11/04/25 19:48 Chloride 101 mmol/L (98-107) 11/04/25 19:48 Carbon Dioxide 27 mmol/L (22-29) 11/04/25 19:48 Anion Gap 16.3 (5-19) 11/04/25 19:48 BUN 13 mg/dL (8-23) 11/04/25 19:48 Creatinine 0.7 mg/dL (0.5-0.9) 11/04/25 19:48 GFR Calculation 83.5 mL/min (90-130) L 11/04/25 19:48 Glucose 133 mg/dL (65-115) H 11/04/25 19:48 Calculated Osmolality 292 mOsm/kg (285-295) 11/04/25 19:48 Calcium 10.2 mg/dL (8.5-10.5) 11/04/25 19:48 Total Bilirubin 0.5 mg/dL (0.15-1.2) 11/04/25 19:48 AST 39 U/L (0-32) H 11/04/25 19:48 ALT 41 U/L (0-33) H 11/04/25 19:48 Alkaline Phosphatase 81 U/L (35-105) 11/04/25 19:48 Troponin T Baseline 12 ng/L (0-10) H 11/04/25 19:48 Troponin T 60 Minute 12.12 ng/L (0-10) H 11/04/25 20:42 Delta Troponin T 0.12 ABS# (0-10) 11/04/25 20:42 NT-Pro-B Natriuret Pep 473 pg/mL (0-125) H 11/04/25 19:48 Total Protein 7.0 g/dL (6.6-8.7) 11/04/25 19:48 Albumin 4.8 g/dL (3.5-5.2) 11/04/25 19:48 Globulin 2.2 g/dL (1.3-4.6) 11/04/25 19:48 Influenza A (PCR) Negative (Negative) 11/04/25 20:20 Influenza Type B (PCR) Negative (Negative) 11/04/25 20:20 RSV (PCR) Negative (Negative) 11/04/25 20:20 SARS-CoV-2 (PCR) Negative (Negative) 11/04/25 20:20 All radiology interpretation(s) finalized by discharge EKG Data EKG 1: I personally reviewed and interpreted this EKG as follows: EKG interpretation date: 11/04/25 EKG interpretation time: 17:34 Prior EKG tracings: available for review Interpretation: Sinus rhythm Rate 108 Normal ND interval No acute ST elevation noted Reviewed with Dr. Andrade EKG 2: I personally reviewed and interpreted this EKG as follows: EKG interpretation date: 11/04/25 EKG interpretation time: 20:00 Prior EKG tracings: available for review Interpretation: Sinus rhythm Rate [address] elevation or depression changes noted No acute changes were noted from EKG performed earlier on same day Discharge Plan Discharge Patient Disposition: Home Clinical Impression: Pneumonia involving left lung Qualifiers: Pneumonia type: due to unspecified organism Lung location: lower lobe of lung Qualified Code(s): J18.9 - Pneumonia, unspecified organism Condition: Stable Prescriptions: New levofloxacin 500 mg tablet 500 mg PO DAILY 7 Days Qty: 7 0RF No Action metoprolol succinate 25 mg tablet extended release 24 hr 25 mg PO DAILY venlafaxine 37.5 mg capsule,extended release 24hr 37.5 mg PO QAM levothyroxine 25 mcg capsule 25 mcg PO DAILY pantoprazole 40 mg tablet,delayed release (DR/EC) 40 mg PO DAILY vitamin [id number] acid 1,000-400 mcg Lozenge 1 boris SUBLINGUAL DAILY atorvastatin 20 mg tablet 20 mg PO QPM Discharge Orders: Discharge ED (Routine); Ordered 11/04/25 Ordered By: Kita Lyon Referrals: Mona Zambrano MD [Primary Care Provider, Family Practice] Patient Instructions: Bacterial Pneumonia (DC), Pneumonia (ED), Patient Portal & William Instructions Activity Restrictions/Additional Instructions: As we discussed, your chest x-ray did show a left pneumonia. We will place you on antibiotics for this. You need to return the emergency department for onset of shortness of breath or difficulty breathing, severe chest pain, or any other concerns you may have. Otherwise I would like you to follow-up with primary care in a week or so for re-evaluation. Print Language: Urdu Coding Level of Care Code ED [employer]ship for Chg Fwd Heart Score HEART Score Components History: Slightly Suspicous EKG: Normal Age: 65 or more yrs Risk Factors: 1 or 2 Risk Factors Troponin: Baseline Trop <16 ng/L HEART Score RESULT HEART Score: 3
[2025-11-04 20:11] LABS: Troponin(5th) Baseline 12 ng/L (0-10)
[2025-11-04 20:14] LABS: Alanine Aminotransferase 41 U/L (0-33); Albumin Level 4.8 g/dL (3.5-5.2); Alkaline Phosphatase 81 U/L (35-105); Aspartate Amino Transferase 39 U/L (0-32); Blood Urea Nitrogen 13 mg/dL (8-23); Calcium 10.2 mg/dL (8.5-10.5); Carbon Dioxide 27 mmol/L (22-29); Chloride 101 mmol/L (98-107); Globulin 2.2 g/dL (1.3-4.6); Glucose 133 mg/dL (65-115); Osmolality Calculated 292 mOsm/kg (285-295); Sodium 140 mmol/L (136-145); Total Protein 7.0 g/dL (6.6-8.7)
[2025-11-04 20:25] LABS: Anion Gap 16.3 (5-19); Potassium 4.3 mmol/L (3.5-5.1)
[2025-11-04 20:33] LABS: NT Pro B Type Natriuretic Pept 473 pg/mL (0-125)
--- NOTE | 2025-11-04 20:53 | ECG_ITS ---
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: : 1960 Requested By: Kita Lyon Order Number: [id number] Bulmaro MD: EVARISTO REINA Measurements Intervals [place] Rate: 85 P: 63 TN: 191 QRS: -62 QRSD: 113 T: 71 QT: 367 QTc: 438 Interpretive Statements SINUS RHYTHM LEFT AXIS DEVIATION [QRS AXIS < -30] INCOMPLETE RIGHT BUNDLE BRANCH BLOCK [90+ ms QRS DURATION, TERMINAL R IN V1/V2, 40+ ms S IN I/aVL/V4/V5/V6] LEFT VENTRICULAR HYPERTROPHY AND ST-T CHANGE [VOLTAGE CRITERIA PLUS ST/T ABNORMALITY] POSSIBLE SEPTAL MYOCARDIAL INFARCTION , OF INDETERMINATE AGE [30 ms Q WAVE IN V1/V2] Compared to ECG 11/04/2025 20:00:33 Left-axis deviation now present Incomplete right bundle-branch block now present Electronically Signed On 11-04-2025 23:16:49 SPORTS COMMENTATOR by EVARISTO REINA [email or web address]
[2025-11-04 21:00] VITALS: BP 162/88; PULSE 89; O2SAT 99
[2025-11-04 21:07] LABS: Respiratory Syncytial Virus Ce NEGATIVE (Negative); SARS-CoV-2 PCR NEGATIVE (Negative)
[2025-11-04 21:41] VITALS: BP 186/91; PULSE 88; O2SAT 97
== END 2025-11-04 21:43 | disposition home or self-care (01) ==
PROVIDERS: Emergency Provider Physician Assistant; PCP Family Medicine
DX: J18.9 Pneumonia, unspecified organism (principal); Z11.52 Encounter for screening for COVID-19; E78.5 Hyperlipidemia, unspecified
CPT/HCPCS: 36415; 71045; 80053; 83880; 84484; 85025; 87637; 93005; 99285; J9999